=== PATIENT | female | born 1975 | race Caucasian/White ===

== ENCOUNTER → 2020-04-08 14:53 | Outpatient (CLI) | payer OTHER, SELFPAY ==
[2020-04-08 17:19] LABS: COVID19 -Nasal RAPID Negative (Negative)
== END ==
PROVIDERS: Visit Provider Physician Assistant
DX: Z01.812 Encounter for preprocedural laboratory examination (principal); Z20.822 Contact with and (suspected) exposure to COVID-19
CPT/HCPCS: 87635

== ENCOUNTER 2020-04-10 12:36 | Day surgery (SDC) | payer OTHER, SELFPAY ==
[2020-04-10] VITALS (9 sets, daily range): BP systolic 111–138; BP diastolic 57–86; PULSE 71–100; RESP 10–16; TEMP 36.3–36.9; O2SAT 98–100; BMI 40.3
--- NOTE | 2020-04-10 | DI.RAD.S_ITS ---
PROCEDURE: XR LUMBAR SPINE 2-3V INDICATIONS: L5-S1 DISECTOMY TECHNIQUE: 2 views of the lumbar spine were acquired. COMPARISON: [facility], MR, MR LUMBAR SPINE WITHOUT CONTRAST, 01/31/2020, 8:29. FINDINGS: Bones: Two views, intraoperative, show discectomy port at the L5-S1 level posterolaterally on the right. Soft tissues: Overlying bowel gas pattern is normal. No suspicious soft tissue calcifications. IMPRESSION: Expected port positioning for right-sided L5-S1 discectomy. This correlates with the area of the MR abnormality seen on 01/31/20. Dictated by: Da Mills M.D. on 04/10/2020 at 16:24 Approved by: Da Mills M.D. on 04/10/2020 at 16:26
[2020-04-10] MEDS: LACTATED RINGERS 1,000 ML 42 ML IV ×2 (13:22→16:02)
--- NOTE | 2020-04-10 14:09 | PM.PREOP ---
Pre-operative Note COVID-19 COVID-19 status: Negative Result date/Date tested (Pos, Neg/Pending): 04/08/20 Interval Note History & Physical reviewed/Exam performed by Physician: Yes Changes to H&P: No
[2020-04-10] MEDS: CEFAZOLIN 2 GM/100 ML FROZ.PIGGY IV (14:35)
--- NOTE | 2020-04-10 15:02 | SUR.OPER ---
Prone on spine table, head in foam head support, padded chest and pelvic supports, gel pad at knees, lower legs supported by pillows; nipples, genitalia and toes free of pressure, arms secured on foam padded arm boards at <90 degrees abduction. Tape over blanket at thigh secured to table.
[2020-04-10] MEDS: BUPIVACAINE 0.5% W/ EPI (PF) 30 ML VIAL INJ (15:11)
--- NOTE | 2020-04-10 15:51 | P.OP_ITS ---
Operative Date/Time/Diagnoses Date of procedure: 04/10/20 Time of procedure: 14:21 Pre-op diagnosis: 1. L5-S1 disc herniation 2. L5-S1 spinal stenosis with radiculopathy Post-op diagnosis: same Procedure & Clinicians Procedure: 1. L5-S1 left microdiscectomy 2. Utilization of microsurgical technique and operating microscope Same procedure as scheduled: Yes Indications: Patient has been having chronic back pain and worsening lumbar radiculopathy. Patient failed multiple conservative management with worsening pain weakness and numbness in her lower extremity. Patient has been having difficulty performing activity of daily living. After discussing risks benefits of treatment options, patient elected proceed with surgery. Surgeon: Viktor Wilson Segment Block Layer: Delmi Trujillo'Brien Click Yes if Unassisted: No Anesthesia Type: General Operative Notes Closure Type: primary Specimen(s): none sent Estimated Blood Loss (mL): 10 Blood products transfused: none Procedure in detail: Patient was seen in the preoperative area. Risks and benefits of the surgery was discussed with the patient. Informed consent was obtained from the patient and placed in the chart. Surgical site was marked. Patient was taken to the operative room. General anesthesia was administered. Prophylactic antibiotic was given to the patient less than 30 min before the incision was made. Patient was placed into a prone position on the Loi table. Patient's back was then prepped and draped in the sterile fashion. Time- out was performed at this time. Using AP and lateral C-arm imaging the interval between L5-S1 was identified and marked on patient's back. A 1 inch incision 1 in from midline was made on the Right side. The fascia was incised in line with skin incision. Globus MARS retractors was placed inside the incision and docked onto the L5 lamina. Using microsurgical technique and operating microscope, a L5 laminotomy was performed using a Kerrison rongeur. Liagamentum flavum was resected at the site of the laminotomy. The disc space at L5-S1 was identified. Microdiscectomy was perfo rmed by incising the annulus with #11 blade. Microcurettes and pituitary was used to removed herniated disc fragments of disc from the epidural space. There was multiple pieces of extruded disc in the epidural space that migrated cephalad and was intimately adhered to the posterior aspect of the vertebral body as well as the dura. Micro curettes and micropituitary was used to carefully remove the fragments and detached adhesion from the vertebral body and the dura. Appropriate decompression was accomplished by A removing the disc fragments and perform the microdiskectomy. After the microdiskectomy was completed, the area medial lateral superior and inferior to the area of the microdiskectomy was inspected and explored using a micro curette. No other impinging structure was identified. The wound was then irrigated with sterile normal saline. 40 mg Depo-Medrol was placed into the epidural space. The deep fascia was closed with 1-0 Vicryl. The subcutaneous tissue was closed with 2-0 Vicryl. The skin was closed with Skin sheree. Patient tolerated the procedure well. There were no complications. Patient was transferred recovery room in stable condition. Complications: none Post-operative Condition: stable Disposition: PACU Plan for aftercare: Discharge to home
[2020-04-10] MEDS: fentaNYL 100 MCG/2 ML INJ IV ×4 (16:18→16:49)
[2020-04-10] MEDS: hydrOXYzine 50 MG/ML INJ 25 MG IM (16:36)
[2020-04-10] MEDS: OXYCODONE/ACETAMINOPHEN 5/325 TABLET 1 TAB PO ×2 (16:37→17:07)
--- NOTE | 2020-04-10 16:58 | SUR.PHASEI ---
Pt received to PACU after general anesthesia. Airway patent, self maintained. Report from Dr Simpson and Mely Dean RN.
== END 2020-04-10 17:42 | disposition home or self-care (01) ==
PROVIDERS: PCP Nurse Practitioner Family; Referring Provider Orthopaedic Surgery Orthopaedic Surgery of the Spine; Visit Provider Orthopaedic Surgery Orthopaedic Surgery of the Spine
PROC: (CPT 63030; principal; 2020-04-10 14:15)
DX: M51.16 Intervertebral disc disorders with radiculopathy, lumbar region (principal); M48.061 Spinal stenosis, lumbar region without neurogenic claudication; E66.01 Morbid (severe) obesity due to excess calories; Z68.41 Body mass index [BMI] 40.0-44.9, adult; I10 Essential (primary) hypertension
CPT/HCPCS: 63030; 72100; 76000; J0690; J1100; J2250; J2405; J2704; J2920; J3010; J3410